=== PATIENT | female | born 1945 | race Caucasian/White ===

== ENCOUNTER → 2016-09-29 | Outpatient (CLI) | payer MEDICARE ==
--- NOTE | ~2016-09-29 | MY11 ---
[facility] A Service [facility] RADIOLOGY TEXT RESULTS PATIENT: AISSATOU RICCI LOCATION: [facility] : 45 UNIT #: [id number] AGE: [address]: Bushra Mcfarland MD SEX: F ORDER DR: [id number] [address] [address] [id number] O MR#: [id number] Acc #: [id number] NAME: AISSATOU RICCI : 1945 SEX: F STUDY DATE/TIME: 09/29/2016 12:15 UNIT: [facility] ROOM: STUDY DESCRIPTION: MY Mammogram Screening Dig Jarred Attending Physician: Bushra Mcfarland M.D. Referring Physician: Bushra Mcfarland M.D. Ordering Physician: Bushra Mcfarland M.D. Primary Care Physician: Bushra Mcfarland M.D. MEDICAL IMAGING REPORT This report is preliminary unless electronic signature is present. EXAM Digital screening mammogram, 09/29/2016 HISTORY 70-year-old woman no risk elevation. Annual screening. COMPARISON 06/21/2008, 02/07/2010, 11/14/2013, 04/27/2015 FINDINGS Digital imaging of each breast was completed utilizing screening protocol. Review includes FDA-approved CAD device. Breast parenchyma is predominantly fatty replaced bilaterally. There are scattered faint subcentimeter nodules identified. I see no suspicious mass characteristics. There are no interval occurring microcalcifications and no suspicious architectural deformity. IMPRESSION Negative mammogram. Annual screening recommended. Patients over the age of 40 are entered into a reminder system with target due date for the next mammogram. A result letter will also be sent to the patient. BIRADS: 1 Negative Dictated by... Dawit Tapia M.D. THIS IS AN ELECTRONICALLY VERIFIED REPORT Dawit Tapia M.D. at 09/30/2016 8:08 AM DELMI/lance [facility] A Service [facility] RADIOLOGY TEXT RESULTS PATIENT: AISSATOU RICCI [facility] [id number] : 45 UNIT #: [id number] AGE: [address]: Bushra Mcfarland MD SEX: F ORDER DR: TD: 09/29/2016 15:00 JOB #: [id number] MEDICAL IMAGING REPORT Page 1 of 1
== END | disposition home or self-care (01) ==
LOC: SMAM 11:10
DX: Z12.31 Encounter for screening mammogram for malignant neoplasm of breast (principal)
CPT/HCPCS: G0202